=== PATIENT | male | born 1990 | race African-American/Black ===

== ENCOUNTER 2023-06-12 17:46 | Emergency (ER) | payer MEDICAID, OTHER ==
[~2023-06-12] VITALS: Ht 177.8 cm; Wt 68.0 kg
[2023-06-12 18:00] VITALS: BP 111/57; PULSE 72; RESP 20; TEMP 98.5; O2SAT 99
[2023-06-12] MEDS ORDERED: IBUPROFEN 400MG TABLET PO ONE (18:15)
[2023-06-12] MEDS ORDERED: ACETAMINOPHEN 325MG TABLET PO ONE (18:15)
[2023-06-12] MEDS ORDERED: LIDOCAINE 5% PATCH TOP SCH (18:15)
[2023-06-12] MEDS ORDERED: LIDO700A30 TP (18:54)
== END 2023-06-12 19:14 | disposition home or self-care (01) ==
LOC: ER 17:46
DX: M54.9 Dorsalgia, unspecified (principal); Z91.013 Allergy to seafood
CPT/HCPCS: 99282; 99283

== ENCOUNTER 2023-12-10 08:25 | Emergency (ER) | payer OTHER ==
[~2023-12-10] VITALS: Ht 172.7 cm; Wt 63.5 kg
[~2023-12-10 08:25] MED LIST: LIDO700A30 TP
[2023-12-10 08:31] VITALS: O2SAT 98
[2023-12-10] MEDS: ACETAMINOPHEN 325MG TABLET PO ONE (09:00)
[2023-12-10] MEDS: IBUPROFEN 600MG TABLET PO ONE (09:00)
[2023-12-10] MEDS ORDERED: IBUP-1523 MT (10:34)
[2023-12-10] MEDS ORDERED: TOPUD MT (10:34)
[2023-12-10 11:13] VITALS: BP 123/76; PULSE 65; RESP 16; TEMP 98.5
== END 2023-12-10 13:35 | disposition home or self-care (01) ==
LOC: ER 08:33
DX: S93.401A Sprain of unspecified ligament of right ankle, initial encounter (principal); Z91.013 Allergy to seafood; X58.XXXA Exposure to other specified factors, initial encounter; Y93.67 Activity, basketball; Y92.89 Other specified places as the place of occurrence of the external cause; Y99.8 Other external cause status
CPT/HCPCS: 73610; 99283